=== PATIENT | male | born 1975 | race Asian ===

== ENCOUNTER 2019-05-12 16:28 | Emergency (ER) | payer OTHER ==
[2019-05-12 16:48] VITALS: BMI 22.1
[2019-05-12] MEDS ORDERED: morphine SULFATE 4 MG/ML VIAL ONE ×2 (16:51→17:59)
--- NOTE | 2019-05-12 16:53 | PDOC ---
History of Present Illness - General Chief Complaint: Injury Stated Complaint: RT ANKLE PAIN Time Seen by Provider: 05/12/19 16:32 - History of Present Illness Initial Comments: 05/12/19 17:09 43 year old man presents with R ankle deformity after jumping off an approx 5 foot ledge while running away from dogs. The patient was witnessed by EMS who brought him in. The patient denies pain to any other extremitites. He has no other complaints. ROS GENERAL/CONSTITUTIONAL: No fever or chills. No weakness. CARDIOVASCULAR: No chest pain or shortness of breath RESPIRATORY: No cough, wheezing, or hemoptysis. GASTROINTESTINAL: No nausea, vomiting, diarrhea or constipation. GENITOURINARY: No dysuria, frequency, or change in urination. MUSCULOSKELETAL: + joint or muscle swelling or pain. No neck or back pain. SKIN: No rash PE GENERAL: awake and alert HEAD: No signs of trauma, normocephalic, atraumatic EYES: EOMI, sclera anicteric, conjunctiva clear ENT: oropharynx clear without exudates. Moist mucosa NECK: Normal ROM, supple LUNGS: No distress, speaks full sentences, clear to auscultation bilaterally HEART: Regular rate and rhythm, normal S1 and S2, no murmurs, rubs or gallops, peripheral pulses normal and equal bilaterally. ABDOMEN: Soft, nontender. No guarding, no rebound. No masses EXTREMITIES : + obvious deformity to the R ankle without skin breakage, inconsistent pulses, normal sensation NEUROLOGICAL: Cranial nerves II through XII grossly intact. Normal speech, no focal sensorimotor deficits MDM DDX including but not limited to: R ankle fx W/U: - pre-op labs, CXR< pelvis xr, ankle xr TX: - pain control ED Course: R ankle with comminuted fx see attending note discussion with in house orthopedics who recommends transfer for trauma orthopedic surgical care posterior splint placed, patient pending transfer to [facility] Sandra Chavez, PGY2 Emergency Medicine Past History - Past Medical History Allergies/Adverse Reactions: Allergies Allergy/AdvReac Type Severity Reaction Status Date / Time No Known Allergies Allergy Verified 05/12/19 16:30 Home Medications: Ambulatory Orders Unobtainable 05/12/19 COPD: No Diabetes: Yes - Psycho Social/Smoking Cessation Hx Smoking History: Never smoked Have you smoked in the past 12 months: No Information on smoking cessation initiated: No Hx Alcohol Use: No Drug/Substance Use Hx: No *Physical Exam - Vital Signs Last Vital Signs Temp Pulse Resp BP Pulse Ox 97.7 F 98 H 20 160/101 H 100 05/12/19 16:29 05/12/19 16:29 05/12/19 16:29 05/12/19 16:29 05/12/19 16:29 ED Treatment Course - LABORATORY CBC & Chemistry Diagram: 05/12/19 17:17 05/12/19 17:17 Discharge - Discharge Information Problems reviewed: Yes Clinical Impression/Diagnosis: Ankle fracture Condition: Stable Disposition: TRANSFER ACUTE CARE/OTHER HOSP - Admission No - Follow up/Referral - Patient Discharge Instructions - Post Discharge Activity
[2019-05-12] MEDS ORDERED: morphine CARPU-JECT 4 MG/1 ML DISP.SYRIN IVPUSH ONE (16:54)
--- NOTE | 2019-05-12 17:21 | PDOC ---
Documentation entered by Deisi Vela SCRIBE, acting as scribe for Rob Montenegro MD. Rob Montenegro MD: This documentation has been prepared by the Dane norton Brenda, SCRIBE, under my direction and personally reviewed by me in its entirety. I confirm that the documentation accurately reflects all work, treatment, procedures, and medical decision making performed by me. Attending Attestation - Resident Resident Name: Sandra Chavez - ED Attending Attestation I have performed the following: I have examined & evaluated the patient, The case was reviewed & discussed with the resident, I agree w/resident's findings & plan, Exceptions are as noted - HPI HPI: 05/12/19 16:49 The patient is a 43 year old male, with a significant PMH of NIDDM who presents to the emergency department with an injury to the right ankle. 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 Pt jumped down about 6 steps and landed on his R foot, rolling it. Pt denies headstrike/LOC. Denies neck/back pain. Denies chest pain, shortness of breath and dizziness. Allergies: NKA - Physicial Exam PE: 05/12/19 17:18 "GENERAL: Awake, alert, and fully oriented, in no acute distress. HEAD: No signs of trauma EYES: PERRLA, EOMI, sclera anicteric, conjunctiva clear ENT: Auricles normal inspection, hearing grossly normal, nares patent, oropharynx clear without exudates. Moist mucosa NECK: Nontender, no stepoffs, Normal ROM, supple, no lymphadenopathy, JVD, or masses LUNGS: Breath sounds equal, clear to auscultation bilaterally. No wheezes, and no crackles HEART: Regular rate and rhythm, normal S1 and S2, no murmurs, rubs or gallops ABDOMEN: Soft, nontender, normoactive bowel sounds. No guarding, no rebound. No masses EXTREMITIES: + R ankle deformity, no open fracture, diminished DP pulse, + R elbow abrasion without bony tenderness NEUROLOGICAL: Cranial nerves II through XII intact. 5/5 strength and sensation in all extremities, Normal speech, normal gait, normal cerebellar function SKIN: Warm, Dry, normal turgor, no rashes or lesions noted. - Medical Decision Making 05/12/19 17:20 43 M with R ankle deformity after jumping 6 stairs onto his R foot. - Labs - XR pelvis, R knee, R tib/fib, R ankle - Pain control - Ortho c/s 05/12/19 18:12 XR shows Pilon fx of R ankle Discussed with Dr. Pop, who recommends txfer for trauma ortho eval Pt placed in short leg bulky lloyd splint Pt accepted to [facility] by Dr. Blackwell, orthopedics. Pt consented for txfer.
[2019-05-12 17:34] LABS: BASO % 0.9 % (0-2.0); EOS % 2.4 % (0-4.5); HEMATOCRIT 48.3 % (35.4-49); HEMOGLOBIN 16.2 GM/dl (11.7-16.9); LYMPH % 28.8 % (8-40); MCH 30.2 pg (25.7-33.7); MCHC 33.6 g/dl (32.0-35.9); MEAN CELL VOLUME 89.9 fl (80-96); MEAN PLT VOLUME 9.2 fl (7.5-11.1); MONO % 6.5 % (3.8-10.2); NEUT % 61.4 % (42.8-82.8); PLATELET COUNT 233 K/MM3 (134-434); RBC 5.37 M/mm3 (4.00-5.60); RDW 12.8 % (11.9-15.9); WHITE BLOOD COUNT 8.1 K/mm3 (4.0-10.8)
[2019-05-12 17:53] LABS: ALBUMIN 4.4 g/dl (3.4-5.0); BILIRUBIN,TOTAL 0.5 mg/dl (0.2-1); CALCIUM 9.6 mg/dl (8.5-10); CREATININE 1.1 mg/dl (0.55-1.3); POTASSIUM 4.3 mmol/L (3.5-5.1); TOT PROT 7.4 g/dl (6.4-8.2)
[2019-05-12 18:23] VITALS: BP 146/89; PULSE 96; TEMP 98
[2019-05-12 18:50] LABS: INR 0.85 (0.82-1.09); PROTHROMBIN TIME (PATIENT) 9.5 SEC (10.2-13.0)
== END 2019-05-12 20:13 | disposition short-term general hospital (02) ==
LOC: FER 16:28
PROC: 2W3QX1Z Immobilization of Right Lower Leg using Splint (ICD-10-PCS; principal; 2019-05-12)
PROC: 3E033NZ Introduction of Analgesics, Hypnotics, Sedatives into Peripheral Vein, Percutaneous Approach (ICD-10-PCS; 2019-05-12)
DX: S82.871A Displaced pilon fracture of right tibia, initial encounter for closed fracture (principal); X58.XXXA Exposure to other specified factors, initial encounter; Y93.75 Activity, martial arts; Y92.89 Other specified places as the place of occurrence of the external cause; Y99.0 Civilian activity done for income or pay; E11.9 Type 2 diabetes mellitus without complications
CPT/HCPCS: 36415; 71045-TC-FY; 72170-TC-FY; 73560-TC-RT-FY; 73610-TC-RT-FY; 73630-TC-RT-FY; 80053; 85025; 85610; 85730; 86850; 86900; 86901; 99283-25